=== PATIENT | male | born 1980 | race Caucasian/White ===

== ENCOUNTER 2019-08-17 19:19 | Emergency (ER) | payer SELFPAY ==
--- NOTE | 2019-08-17 20:02 | EDM.PDOC ---
ED HPI GENERAL MEDICAL PROBLEM - General Chief Complaint: General Stated Complaint: IRRITABILITY, HEART PALPITATIONS Time Seen by Provider: 08/17/19 19:43 Source of Information: Reports: Patient - History of Present Illness INITIAL COMMENTS - FREE TEXT/NARRATIVE: NIKKIE HPI: This is a 38-year-old male that is a temporary employee in the [employer]. He is concerned that he may have been slipped something into a drink at work by 1 of his coworkers so that his drug screen would turn positive and he would get fired. Patient's been having palpitations and feels restless. He denies any chest pain or shortness of breath or other complaints he has no suicidal homicidal ideation no auditory or visual loose Nations. PMHX/PSHX: Negative Social History: Negative for tobacco, negative for alcohol, negative for street drugs or marijuana Family history: Hypertension ROS: see chart PE: VS afebrile vital signs stable General: No apparent distress Head: Atraumatic normocephalic no lumps bumps or bruises Eyes: EOMI PERRLA Ears: TMs intact no hemotympanum no signs of infection no mastoid tenderness Nose: No epistaxis nares patent no septal wall hematoma Throat: No pharyngeal erythema or exudate no tonsillar enlargement Neck: Supple, no cervical lymphadenopathy Chest wall: No point tenderness Heart: Regular rate and rhythm without murmur gallop or rub Lungs: Clear to auscultation and percussion without rales rhonchi or wheeze Abdomen: Soft nontender nondistended without guarding rigidity or rebound Neck: No spinal point tenderness full range of motion in all 6 directions Back: No spinal paraspinal or CVA tenderness Extremities: full rom through out. no effusions skin: Warm dry intact no rashes neurologic: cranial nerves II through XII intact. No focal motor or sensory deficits noted MDM: Differential diagnosis: ED course: EKG is normal no signs of any arrhythmia vital signs normal drug screen negative no signs of hallucinations or grave disability. Diagnosis: Palpitations Disposition: Home - Related Data Allergies Allergy/AdvReac Type Severity Reaction Status Date / Time No Known Allergies Allergy Verified 08/17/19 19:42 Home Meds: Home Meds . [No Known Home Meds] 08/17/19 [History] Past Medical History - Past Health History Medical/Surgical History: Denies Medical/Surgical History - Infectious Disease History Infectious Disease History: Reports: Chicken Pox Social & Family History - Family History Family Medical History: Noncontributory - Tobacco Use Smoking Status *Q: Current Every Day Smoker Years of Tobacco use: 7 Packs/Tins Daily: 1 - Caffeine Use Caffeine Use: Reports: Coffee, Soda - Recreational Drug Use Recreational Drug Use: No ED ROS GENERAL - Review of Systems Review Of Systems: Comprehensive ROS is negative, except as noted in HPI. ED EXAM, GENERAL - Physical Exam Exam: See Below Free Text/Narrative:: See my dictation Course - Vital Signs Last Recorded V/S: Last Vital Signs Temp 36.4 C 08/17/19 19:39 Pulse 82 08/17/19 19:39 Resp 18 08/17/19 19:39 BP 145/98 H 08/17/19 19:39 Pulse Ox 99 08/17/19 19:39 - Orders/Labs/Meds Orders: Active Orders 24 hr Category Date Time Status EKG Documentation Completion [RC] STAT Care 08/17/19 20:00 Active Labs: Laboratory Tests 08/17/19 Range/Units 20:00 Urine Opiates Screen NEGATIVE (NEGATIVE) Ur Oxycodone Screen NEGATIVE (NEGATIVE) Urine Methadone Screen NEGATIVE (NEGATIVE) Ur Barbiturates Screen NEGATIVE (NEGATIVE) Ur Phencyclidine Scrn NEGATIVE (NEGATIVE) Ur Amphetamine Screen NEGATIVE (NEGATIVE) U Methamphetamines Scrn NEGATIVE (NEGATIVE) U Benzodiazepines Scrn NEGATIVE (NEGATIVE) U Cocaine Metab Screen NEGATIVE (NEGATIVE) U Marijuana (THC) Screen NEGATIVE (NEGATIVE) Departure - Departure Time of Disposition: 21:32 Disposition: Home, Self-Care 01 Clinical Impression: Palpitations - Discharge Information Referrals: PCP,None [Primary Care Provider] - Forms: ED Department Discharge Additional Instructions: Drink plenty of fluids. Avoid sugar and caffeine. Follow-up with your primary care doctor as needed. Follow up as needed: [facility]. [address] [place] [id number] tel: or fllow up at : [address] [address] tel: Sepsis Event Note - Evaluation Sepsis Screening Result: No Definite Risk - Focused Exam Vital Signs: Vital Signs Temp Pulse Resp BP Pulse Ox 08/17/19 19:39 36.4 C 82 18 145/98 H 99 Date Exam was Performed: 08/17/19 Time Exam was Performed: 21:31 - My Orders Last 24 Hours: My Active Orders 08/17/19 20:00 EKG Documentation Completion [RC] STAT - Assessment/Plan Last 24 Hours: My Active Orders 08/17/19 20:00 EKG Documentation Completion [RC] STAT
== END 2019-08-17 21:43 | disposition home or self-care (01) ==
LOC: MW.ED 19:19
DX: R00.2 Palpitations (principal); F17.210 Nicotine dependence, cigarettes, uncomplicated
CPT/HCPCS: 80305-QW; 93005; 99282; 99285-25